=== PATIENT | female | born 1970 | race African-American/Black ===

== ENCOUNTER 2016-09-15 17:53 | Emergency (ER) | payer MEDICARE, MEDICAID ==
[~2016-09-15] VITALS: Ht 170.2 cm; Wt 130.2 kg
[2016-09-15] MEDS ORDERED: ASPirin 81 mg TAB PO ONE (18:45)
[2016-09-15] MEDS ORDERED: ONDANSETRON HCL 4 MG/2 ML VIAL IV ONE (18:45)
[2016-09-15] MEDS ORDERED: KETOROLAC TROMETH 30 MG/ML 1ML VIAL IM ONE (18:45)
[2016-09-15] MEDS ORDERED: NITROGLYCERIN 0.2MG/HR TOPICAL PATCH TD ONE (18:45)
[2016-09-15] MEDS ORDERED: LORazepam 2MG/ML-1ML VIAL IV ONE (18:45)
[2016-09-15 19:09] LABS: Basophils # (auto) 0.1 uL; Basophils % (auto) 0.8 % (0.0-2.0); DEFINITIVE VIEW TRANSMISSION; Eosinophils # (auto) 0.2 uL; Eosinophils % (auto) 1.9 % (0.0-7.0); Hematocrit 41.6 % (36.0-46.0); Hemoglobin 12.8 g/dL (12.2-16.2); Lymphocytes % (auto) 35.4 % (10.0-50.0); Mean Corpuscular Hemoglobin 26.5 pg (28.0-32.0); Mean Corpuscular Hgb Conc. 30.8 g/dL (32.0-36.0); Mean Platelet Volume 7.9 fL (7.4-10.4); Monocytes # (auto) 0.6 uL; Monocytes % (auto) 6.8 % (0.0-12.0); Neutrophils # (auto) 4.7 uL; Neutrophils % (auto) 55.1 % (37.0-80.0); Platelet Count (auto) 361 10^3/uL (140-450); Red Cell Distribution Width 15.2 % (11.6-16.0); White Blood Cell 8.6 10^3/uL (4.4-10.8)
[2016-09-15] MEDS ORDERED: LORazepam 2MG/ML-1ML VIAL ONE (19:24)
[2016-09-15 19:39] LABS: INR 1.03 (0.9-1.15); Partial Thromboplastin Time 25.2 sec (22.64-33.71); Prothrombin Time 10.6 sec (9.37-12.3)
[2016-09-15 19:47] LABS: Albumin 3.5 g/dL (3.4-5.0); BUN/Creatinine Ratio 7.2; Calcium 9.4 mg/dL (8.5-10.1); Magnesium 1.7 mg/dL (1.6-2.6); Potassium 3.4 mmol/L (3.5-5.1)
[2016-09-15 19:50] LABS: Bilirubin, Total 0.3 mg/dL (0.2-1.0); Total Protein 7.2 g/dL (6.4-8.2)
[2016-09-15 19:53] LABS: B-Type Natriuretic Peptide 21.53 pg/mL (0-100)
[2016-09-15 20:06] LABS: Temperature: 21.6 C (20.0-25.0)
[2016-09-15 20:32] VITALS: BP 139/64
[2016-09-15] MEDS ORDERED: DEXTROSE (50%) 50ML SYRG IV PRN (21:30)
[2016-09-15] MEDS ORDERED: NITROGLYCERIN 0.4 MG SL TAB SL PRN (21:30)
[2016-09-15] MEDS ORDERED: MORPHINE SULF INJ 2 MG/ML SYRINGE 1ML IV PRN ×2 (21:30)
[2016-09-15] MEDS ORDERED: ONDANSETRON HCL 4 MG/2 ML VIAL IV PRN (21:30)
[2016-09-15] MEDS ORDERED: POTASSIUM CHL 20 Meq TABLET PO ONE (21:30)
[2016-09-15] MEDS ORDERED: HYDROcodone-ACET 5/325MG TAB PO PRN (21:30)
[2016-09-15] MEDS ORDERED: ACETAMINOPHEN 325 MG TAB PO PRN (21:30)
[2016-09-15] MEDS ORDERED: METOPROLOL TARTRATE 25 MG TAB PO SCH (22:00)
[2016-09-15] MEDS ORDERED: FAMOTIDINE 20 MG TAB PO SCH (22:00)
[2016-09-16] MEDS ORDERED: ACCU-CHEK COMFORT CURVE STRIP VI SCH
[2016-09-16] MEDS ORDERED: InsuLIN REG 1unit/0.01ml Soln (100units/ml) SC SCH
[2016-09-16] MEDS ORDERED: ASPirin 81 mg TAB PO SCH (10:00)
[2016-09-16] MEDS ORDERED: ENOXAPARIN SOD 40 MG/0.4 ML SYRINGE SC SCH (10:00)
== END 2016-09-15 21:44 | disposition left against medical advice (07) ==
LOC: ER 17:55
DX: I20.9 Angina pectoris, unspecified (principal); I10 Essential (primary) hypertension; E11.9 Type 2 diabetes mellitus without complications; I48.91 Unspecified atrial fibrillation; F17.210 Nicotine dependence, cigarettes, uncomplicated; Z87.11 Personal history of peptic ulcer disease; N80.9 Endometriosis, unspecified; Z88.0 Allergy status to penicillin; Z88.2 Allergy status to sulfonamides
CPT/HCPCS: 36415; 71010; 80053; 83735; 83880; 84443; 84484; 85025; 85379; 85610; 85730; 93005; 94761; 96372; 96374; 96375; 99285; J1885; J2060; J2405

== ENCOUNTER 2017-03-25 01:28 | Emergency (ER) | payer OTHER, MEDICAID ==
[~2017-03-25] VITALS: Ht 175.3 cm; Wt 130.2 kg
[2017-03-25 01:53] VITALS: BP 156/93
== END 2017-03-25 02:23 | disposition home or self-care (01) ==
LOC: ER 01:28
DX: L03.011 Cellulitis of right finger (principal); I48.91 Unspecified atrial fibrillation; E11.9 Type 2 diabetes mellitus without complications; F17.210 Nicotine dependence, cigarettes, uncomplicated; I10 Essential (primary) hypertension; Z88.0 Allergy status to penicillin; Z88.1 Allergy status to other antibiotic agents

== ENCOUNTER 2017-12-26 00:38 | Emergency (ER) | payer OTHER, MEDICAID ==
[~2017-12-26] VITALS: Ht 172.7 cm; Wt 135.2 kg
[2017-12-26 01:01] VITALS: BP 132/87
[2017-12-26 02:43] LABS: Basophils # (auto) 0.1 uL; Eosinophils # (auto) 0.4 uL; Eosinophils % (auto) 4.3 % (0.0-7.0); Hematocrit 40.9 % (36.0-46.0); Hemoglobin 13.6 g/dL (12.2-16.2); Lymphocytes # (auto) 3.6 uL; Lymphocytes % (auto) 37.3 % (10.0-50.0); Mean Corpuscular Hgb Conc. 33.1 g/dL (32.0-36.0); Mean Corpuscular Volume 84.7 fL (80.0-100.0); Monocytes # (auto) 0.8 uL; Monocytes % (auto) 8.3 % (0.0-12.0); Neutrophils # (auto) 4.7 uL; Neutrophils % (auto) 49.1 % (37.0-80.0); Nucleated Red Blood Cells % 0.1 %; Platelet Count (auto) 358 10^3/uL (140-450); Red Blood Cells 4.84 10^6/uL (4.0-5.20); Red Cell Distribution Width 15.9 % (11.8-14.3); White Blood Cell 9.6 10^3/uL (4.4-10.8)
[2017-12-26 03:03] LABS: Albumin 3.4 g/dL (3.4-5.0); BUN/Creatinine Ratio 16.4; Bilirubin, Total 0.2 mg/dL (0.2-1.0); Calcium 8.6 mg/dL (8.5-10.1); Potassium 3.9 mmol/L (3.5-5.1); Total Protein 7.1 g/dL (6.4-8.2)
== END 2017-12-26 05:58 | disposition left against medical advice (07) ==
LOC: ER 00:41
DX: M25.562 Pain in left knee (principal); Z53.21 Procedure and treatment not carried out due to patient leaving prior to being seen by health care provider; W19.XXXA Unspecified fall, initial encounter; Y93.89 Activity, other specified; Y92.89 Other specified places as the place of occurrence of the external cause; Y99.8 Other external cause status
CPT/HCPCS: 36415; 73560; 73700; 80053; 85025

== ENCOUNTER 2017-12-26 18:52 | Emergency (ER) | payer OTHER, MEDICAID ==
[~2017-12-26] VITALS: Ht 175.3 cm; Wt 135.2 kg
[2017-12-26 19:37] VITALS: BP 145/72
== END 2017-12-26 21:21 | disposition left against medical advice (07) ==
LOC: ER 18:52
DX: M79.672 Pain in left foot (principal); F17.210 Nicotine dependence, cigarettes, uncomplicated; I48.91 Unspecified atrial fibrillation; E11.9 Type 2 diabetes mellitus without complications; I10 Essential (primary) hypertension; Z88.0 Allergy status to penicillin; Z88.2 Allergy status to sulfonamides; Z53.29 Procedure and treatment not carried out because of patient's decision for other reasons

== ENCOUNTER 2017-12-31 20:24 | Inpatient (IN) | payer OTHER, MEDICAID ==
[~2017-12-31] VITALS: Ht 175.3 cm; Wt 139.0 kg
[2017-12-31 21:52] LABS: Basophils # (auto) 0.1 uL; Basophils % (auto) 0.6 % (0.0-2.0); Eosinophils # (auto) 0.3 uL; Eosinophils % (auto) 3.6 % (0.0-7.0); Hematocrit 41.5 % (36.0-46.0); Hemoglobin 13.6 g/dL (12.2-16.2); Lymphocytes # (auto) 2.9 uL; Lymphocytes % (auto) 30.2 % (10.0-50.0); Mean Corpuscular Hemoglobin 28.1 pg (28.0-32.0); Mean Corpuscular Hgb Conc. 32.8 g/dL (32.0-36.0); Mean Corpuscular Volume 85.5 fL (80.0-100.0); Monocytes # (auto) 0.8 uL; Monocytes % (auto) 8.5 % (0.0-12.0); Neutrophils # (auto) 5.6 uL; Neutrophils % (auto) 57.1 % (37.0-80.0); Nucleated Red Blood Cells % 0.1 %; Platelet Count (auto) 352 10^3/uL (140-450); Red Blood Cells 4.85 10^6/uL (4.0-5.20); Red Cell Distribution Width 16.1 % (11.8-14.3); White Blood Cell 9.7 10^3/uL (4.4-10.8)
[2017-12-31 22:07] LABS: INR 0.93 (0.9-1.15); Partial Thromboplastin Time 24.7 sec (23.78-33.04)
[2017-12-31 22:14] LABS: Albumin 3.3 g/dL (3.4-5.0); Bilirubin, Total 0.3 mg/dL (0.2-1.0); Calcium 8.5 mg/dL (8.5-10.1); Magnesium 2.1 mg/dL (1.6-2.6)
[2018-01-01] MEDS ORDERED: DEXTROSE (50%) 50ML SYRG IV PRN (01:15)
[2018-01-01] MEDS ORDERED: ACETAMINOPHEN 325 MG TAB PO PRN (01:15)
[2018-01-01] MEDS ORDERED: MORPHINE SULFATE 8mg/ml INJ SDV IV PRN (01:15)
[2018-01-01] MEDS ORDERED: TEMAZEPAM 15 MG CAP PO PRN (01:15)
[2018-01-01] MEDS ORDERED: HYDROcodone-ACET 5/325MG TAB PO PRN (01:15)
[2018-01-01 02:18] VITALS: BP 130/70
[2018-01-01] MEDS ORDERED: CYA100I IM (03:38)
[2018-01-01] MEDS ORDERED: OXY20CRT PO (03:38)
[2018-01-01] MEDS ORDERED: CARI-277 PO (03:38)
[2018-01-01] MEDS ORDERED: CLON0.1T PO (03:38)
[2018-01-01] MEDS ORDERED: METF-370 PO (03:38)
[2018-01-01] MEDS ORDERED: SACU1TAB PO (03:38)
[2018-01-01] MEDS ORDERED: METO-159 PO (03:38)
[2018-01-01] MEDS ORDERED: DICL1GEL26 TOP (03:38)
[2018-01-01] MEDS ORDERED: CHOL20007 PO (03:38)
[2018-01-01] MEDS ORDERED: ALPR1TAB2 PO (03:38)
[2018-01-01] MEDS ORDERED: ALBU1.257 IN (03:38)
[2018-01-01] MEDS ORDERED: VERA1TAB9 PO (03:38)
[2018-01-01] MEDS ORDERED: INSREG3 IV (03:38)
[2018-01-01] MEDS ORDERED: PRAV20TA3 PO (03:38)
[2018-01-01] MEDS ORDERED: CEL100T PO (03:38)
[2018-01-01] MEDS ORDERED: OME20T PO (03:38)
[2018-01-01] MEDS ORDERED: FLUT50SP (03:38)
[2018-01-01] MEDS ORDERED: INSUINJ2 SC (03:38)
[2018-01-01] MEDS ORDERED: MILN50TA PO (03:38)
[2018-01-01] MEDS ORDERED: ONDA8TAB6 PO (03:38)
[2018-01-01] MEDS ORDERED: PREG150C PO (03:38)
[2018-01-01] MEDS ORDERED: DICY10CA55 PO (03:38)
[2018-01-01] MEDS ORDERED: OXY5T PO (03:38)
[2018-01-01] MEDS: ONDANSETRON HCL 4 MG/2 ML VIAL IV PRN ×3 (04:20→23:36)
[2018-01-01] MEDS: SODIUM CHLORIDE 0.9% 1,000 ML IV SCH ×3 (04:49→14:42)
[2018-01-01 05:00] VITALS: BP 128/76
[2018-01-01] MEDS: InsuLIN REG 1unit/0.01ml Soln (100units/ml) SC SCH ×4 (06:00→23:33)
[2018-01-01] MEDS: ACCU-CHEK COMFORT CURVE STRIP VI SCH ×4 (06:04→23:45)
[2018-01-01 09:14] VITALS: BP 121/71
[2018-01-01] MEDS: LOSARTAN POTASSIUM 50 MG TAB PO SCH (09:46)
[2018-01-01] MEDS: METOPROLOL TARTRATE 50 MG TAB PO SCH ×2 (09:48→22:00)
[2018-01-01] MEDS: FAMOTIDINE 20 MG TAB PO SCH ×2 (09:48→22:00)
[2018-01-01 13:10] VITALS: BP 141/112
[2018-01-01] MEDS: MORPHINE SULFATE 10 MG/ML INJ 1ML SDV IV PRN ×2 (13:26→23:40)
[2018-01-01] MEDS: VERAPAMIL HCL 120 mg ER tab PO SCH (14:15)
[2018-01-01] MEDS ORDERED: ALBUTEROL SULF 2.5 MG/0.5ML(0.5%) NEB SOLN NEB PRN (14:15)
[2018-01-01] MEDS ORDERED: IPRATROPIUM BROM 0.5 MG/2.5ML INH SOL NEB PRN (14:15)
[2018-01-01] MEDS ORDERED: ALPRAZolam 0.5 MG TAB PO PRN (14:15)
[2018-01-01 17:21] VITALS: BP 115/62
[2018-01-01 22:00] VITALS: BP 122/59
[2018-01-01] MEDS ORDERED: PRAVASTATIN SODIUM 20 MG TAB PO SCH (22:00)
[2018-01-01] MEDS ORDERED: MORPHINE SULFATE 4 MG/ML SYR/VIAL ONE (23:27)
[2018-01-02 05:00] VITALS: BP 130/77
[2018-01-02] MEDS: InsuLIN REG 1unit/0.01ml Soln (100units/ml) SC SCH (05:38)
[2018-01-02] MEDS: SODIUM CHLORIDE 0.9% 1,000 ML IV SCH (05:39)
[2018-01-02] MEDS: ACCU-CHEK COMFORT CURVE STRIP VI SCH (05:39)
[2018-01-02 06:45] LABS: Basophils # (auto) 0.1 uL; Basophils % (auto) 0.6 % (0.0-2.0); Eosinophils # (auto) 0.2 uL; Eosinophils % (auto) 2.1 % (0.0-7.0); Hematocrit 39.1 % (36.0-46.0); Hemoglobin 12.7 g/dL (12.2-16.2); Lymphocytes # (auto) 2.5 uL; Lymphocytes % (auto) 28.8 % (10.0-50.0); Mean Corpuscular Hemoglobin 27.9 pg (28.0-32.0); Mean Corpuscular Hgb Conc. 32.4 g/dL (32.0-36.0); Mean Corpuscular Volume 85.9 fL (80.0-100.0); Monocytes # (auto) 0.7 uL; Monocytes % (auto) 8.6 % (0.0-12.0); Neutrophils # (auto) 5.2 uL; Neutrophils % (auto) 59.9 % (37.0-80.0); Platelet Count (auto) 273 10^3/uL (140-450); Red Blood Cells 4.55 10^6/uL (4.0-5.20); Red Cell Distribution Width 15.9 % (11.8-14.3); White Blood Cell 8.7 10^3/uL (4.4-10.8)
[2018-01-02 07:09] LABS: BUN/Creatinine Ratio 11.9; Calcium 8.1 mg/dL (8.5-10.1); Magnesium 2.1 mg/dL (1.6-2.6); Potassium 3.7 mmol/L (3.5-5.1)
[2018-01-02] MEDS: ONDANSETRON HCL 4 MG/2 ML VIAL IV PRN ×2 (07:36→11:58)
[2018-01-02 09:00] VITALS: BP 140/76
[2018-01-02 09:44] VITALS: BP 130/77
[2018-01-02] MEDS ORDERED: ENOXAPARIN SOD 40 MG/0.4 ML SYRINGE SC SCH (10:00)
[2018-01-02] MEDS: FAMOTIDINE 20 MG TAB PO SCH (10:40)
[2018-01-02] MEDS: VERAPAMIL HCL 120 mg ER tab PO SCH (10:43)
[2018-01-02] MEDS: METOPROLOL TARTRATE 50 MG TAB PO SCH (10:46)
[2018-01-02] MEDS: LOSARTAN POTASSIUM 50 MG TAB PO SCH (10:51)
[2018-01-02 13:00] VITALS: BP 166/86
[2018-01-02 13:13] VITALS: BP 166/86
== END 2018-01-02 17:37 | disposition home or self-care (01) | DRG 563 ==
LOC: ER 20:24 → OVERFLOW 20:25 → WEST WING 01-01 02:18
PROVIDERS: ADMIT Nurse Practitioner; ATTEND Internal Medicine
DX: S86.012A Strain of left Achilles tendon, initial encounter (principal); E11.40 Type 2 diabetes mellitus with diabetic neuropathy, unspecified; I11.0 Hypertensive heart disease with heart failure; E66.01 Morbid (severe) obesity due to excess calories; I48.0 Paroxysmal atrial fibrillation; E78.5 Hyperlipidemia, unspecified; F17.210 Nicotine dependence, cigarettes, uncomplicated; W19.XXXA Unspecified fall, initial encounter; J44.9 Chronic obstructive pulmonary disease, unspecified; Z82.49 Family history of ischemic heart disease and other diseases of the circulatory system; Z87.11 Personal history of peptic ulcer disease; Z83.3 Family history of diabetes mellitus; Z88.0 Allergy status to penicillin; Z88.2 Allergy status to sulfonamides; Y93.89 Activity, other specified; Y92.89 Other specified places as the place of occurrence of the external cause; Y99.8 Other external cause status; G89.29 Other chronic pain; M54.9 Dorsalgia, unspecified
CPT/HCPCS: 36415; 71045; 80048; 80053; 80061; 82962; 83036; 83735; 85025; 85610; 85730; 93005; 94761; 96361; 96374; 96375; J1815; J2270; J2405

== ENCOUNTER 2020-11-07 20:57 | Emergency (ER) | payer OTHER, MEDICAID ==
[~2020-11-07] VITALS: Ht 170.2 cm; Wt 138.8 kg
[~2020-11-07 20:57] MED LIST: ALBU1.257 IN; ALPR1TAB2 PO; CARI-277 PO; CEL100T PO; CHOL20007 PO; CLON0.1T PO; CYA100I IM; DICL1GEL26 TOP; DICY10CA55 PO; FLUT50SP; INSREG3 IV; INSUINJ2 SC; METF-370 PO; METO-159 PO; MILN50TA PO; OME20T PO; ONDA-143 PO; OXY20CRT PO; OXY5T PO; PRAV20TA3 PO; PREG150C PO; SACU1TAB PO; VERA120T3 PO
[2020-11-07 22:17] LABS: Basophils # (auto) 0 10 ^3/uL (0-0.2); Basophils % (auto) 0.4 % (0.0-2.0); Eosinophils # (auto) 0.2 10 ^3/uL (0-0.8); Eosinophils % (auto) 3.2 % (0.0-7.0); Hematocrit 37.9 % (36.0-46.0); Hemoglobin 12.4 g/dL (12.2-16.2); Lymphocytes # (auto) 3.3 10 ^3/uL (0.4-5.4); Lymphocytes % (auto) 47.4 % (10.0-50.0); Mean Corpuscular Hemoglobin 29.2 pg (28.0-32.0); Mean Corpuscular Hgb Conc. 32.8 g/dL (32.0-36.0); Mean Corpuscular Volume 88.9 fL (80.0-100.0); Monocytes # (auto) 0.5 10 ^3/uL (0-1.3); Monocytes % (auto) 7.6 % (0.0-12.0); Neutrophils # (auto) 2.9 10 ^3/uL (1.6-8.6); Neutrophils % (auto) 41.4 % (37.0-80.0); Nucleated Red Blood Cells % 0.1 %; Platelet Count (auto) 292 10^3/uL (140-450); Red Blood Cells 4.26 10^6/uL (4.0-5.20); Red Cell Distribution Width 13.9 % (11.8-14.3); White Blood Cell 6.9 10^3/uL (4.4-10.8)
[2020-11-07 22:35] LABS: INR 0.96 (0.9-1.15); Partial Thromboplastin Time 23.9 sec (23.0-31.2)
[2020-11-07 22:37] LABS: Albumin 3.2 g/dL (3.4-5.0); Anion Gap 6 (5-15); Blood Urea Nitrogen 10 mg/dL (7-18); Calcium 8.3 mg/dL (8.5-10.1); Carbon Dioxide 27 mmol/L (21-32); Chloride 106 mmol/L (98-107); Glucose 284 mg/dL (74-106); Potassium 4.2 mmol/L (3.5-5.1); Sodium 139 mmol/L (136-145)
[2020-11-07 22:43] LABS: Alanine Aminotransferase 19 U/L (13-56); Alkaline Phosphatase 105 U/L (45-117); Aspartate Aminotransferase 13 U/L (15-37); BUN/Creatinine Ratio 11.6; Bilirubin, Total 0.3 mg/dL (0.2-1.0); GFR African American 90 mL/min; GFR Non-African American 75 mL/min; Total Protein 6.8 g/dL (6.4-8.2)
[2020-11-08] MEDS ORDERED: BACITRACIN TOP OINT 1 UD PKG TOP ONE (03:00)
[2020-11-08 03:01] VITALS: BP 155/84
== END 2020-11-08 04:03 | disposition home or self-care (01) ==
LOC: ER 20:59
DX: T24.202A Burn of second degree of unspecified site of left lower limb, except ankle and foot, initial encounter (principal); F17.210 Nicotine dependence, cigarettes, uncomplicated; E11.9 Type 2 diabetes mellitus without complications; K21.9 Gastro-esophageal reflux disease without esophagitis; I10 Essential (primary) hypertension; E78.5 Hyperlipidemia, unspecified; Z79.899 Other long term (current) drug therapy; Z88.0 Allergy status to penicillin; Z88.2 Allergy status to sulfonamides; X08.8XXA Exposure to other specified smoke, fire and flames, initial encounter; Y93.89 Activity, other specified; Y92.89 Other specified places as the place of occurrence of the external cause; Y99.8 Other external cause status
CPT/HCPCS: 36415; 80053; 83880; 84484; 84702; 85025; 85610; 85730; 93005; 93970